=== PATIENT | female | born 1975 | race Hispanic/Latino ===

== ENCOUNTER 2024-04-10 14:23 | Emergency (ER) | payer SELFPAY ==
[~2024-04-10] VITALS: Ht 165.1 cm; Wt 104.3 kg
[2024-04-10 14:27] VITALS: TEMP 100.2
[2024-04-10 15:26] LABS: CLARITY,URINE HAZY (CLEAR); COLOR,URINE YELLOW (YELLOW)
[2024-04-10 15:27] LABS: BILIRUBIN,URINE NEGATIVE (NEGATIVE); GLUCOSE, URINE 500 (NEGATIVE); KETONES,URINE NEGATIVE (NEGATIVE); LEUKOCYTE ESTERASE ,URINE NEGATIVE (NEGATIVE); NITRITE,URINE NEGATIVE (NEGATIVE); PH,URINE 6 (5 - 7); PREGNANCY TEST, URINE NEGATIVE (NEGATIVE); PROTEIN,URINE DIPSTICK >=300 (NEGATIVE); URINE UROBILINOGEN 2 mg/dL (0.2 - 1)
[2024-04-10] MEDS: ONDANSETRON HCL INJ 2MG/ML 2ML 2 MG/ML VIAL IV STA (15:29)
[2024-04-10] MEDS: ACETAMINOPHEN 325 MG TAB PO ONE (15:29)
[2024-04-10] MEDS: FAMOTIDINE 20 MG/2 ML VIAL IV STA (15:29)
[2024-04-10] MEDS: SODIUM CHLORIDE 0.9% 1000ML 1,000 ML IV STA (15:32)
[2024-04-10 15:36] LABS: BACTERIA,URINE MANY /HPF; EPITHELIAL CELLS,URINE FEW /LPF
[2024-04-10 15:37] LABS: INFLUENZA A AG NEGATIVE (NEGATIVE); INFLUENZA B AG NEGATIVE (NEGATIVE); RBC,URINE 0-5 /HPF (0-5)
[2024-04-10 15:38] LABS: CORONAVIRUS COVID-19 AG NEGATIVE (NEGATIVE)
[2024-04-10 15:48] LABS: BASOPHILS % 0.2 % (0.0-1.0); EOSINOPHILS % 0.2 % (0.0-6.0); HEMATOCRIT 34.7 % (34.2-44.1); HEMOGLOBIN 9.9 g/dL (12.0-16.0); LYMPHOCYTES # (AUTO) 0.2 (1.0-3.2); LYMPHOCYTES % 4.3 % (18.0-39.1); MEAN CORPUSCULAR HEMOGLOBIN 23.2 pg (28-32); MEAN CORPUSCULAR HGB CONC 28.5 g/dL (31-35); MEAN CORPUSCULAR VOLUME 81.5 fL (81-99); MONOCYTES % 0.6 % (4.4-11.3); NEUTROPHILS # (AUTO) 5.1 (2.1-6.9); NEUTROPHILS % 94.3 % (38.7-80.0); PLATELET COUNT 248 x10e3/uL (140-360); RED BLOOD COUNT 4.26 x10e6/uL (3.6-5.1); RED CELL DISTRIBUTION WIDTH 15.9 % (11.7-14.4); WHITE BLOOD COUNT 5.36 x10e3/uL (4.8-10.8)
[2024-04-10 15:49] VITALS: PULSE 102; RESP 18
[2024-04-10 16:06] LABS: INR 1.02
[2024-04-10 16:07] LABS: PARTIAL THROMBOPLASTIN TIME 25.4 seconds (23.8-35.5)
[2024-04-10 16:12] LABS: B-TYPE NATRIURETIC PEPTIDE2 41.5 pg/mL (0-100)
[2024-04-10 16:14] LABS: ALBUMIN 3.5 g/dL (3.5-5.0); ALBUMIN/GLOBULIN RATIO 0.9 (0.8-2.0); ANION GAP 14.5 mmol/L (8-16); BILIRUBIN,TOTAL 1.6 mg/dL (0.2-1.2); CALCIUM 8.8 mg/dL (8.4-10.2); CREATININE, SERUM 0.79 mg/dL (0.57-1.11); MAGNESIUM 1.5 MG/DL (1.3-2.1); POTASSIUM 3.5 mmol/L (3.5-5.1); TOTAL PROTEIN 7.2 g/dL (6.5-8.1)
[2024-04-10 16:20] LABS: TROPONIN I 0.008 ng/mL (0-0.300)
[2024-04-10] MEDS ORDERED: ONDANSETRON ODT4 MG PO (16:41)
[2024-04-10] MEDS ORDERED: CEFDINIR300 MG PO (16:41)
[2024-04-10 16:45] VITALS: BP 126/70; PULSE 104; RESP 18; TEMP 100.5; O2SAT 96
== END 2024-04-10 16:56 | disposition home or self-care (01) ==
LOC: ER 14:49
DX: R50.9 Fever, unspecified (principal); J06.9 Acute upper respiratory infection, unspecified; N39.0 Urinary tract infection, site not specified; E11.65 Type 2 diabetes mellitus with hyperglycemia; Z11.52 Encounter for screening for COVID-19; R94.31 Abnormal electrocardiogram [ECG] [EKG]
CPT/HCPCS: 36415; 71045; 80053; 81001; 81025; 82550; 83605; 83735; 83880; 84484; 85025; 85610; 85730; 87040; 87086; 87186; 87428; 93005; 99284; J0696; J2405; J7030